=== PATIENT | male | born 1990 | race Caucasian/White ===

== ENCOUNTER 2017-09-29 15:56 | Emergency (ER) | payer OTHER ==
[~2017-09-29] VITALS: Ht 182.9 cm; Wt 102.5 kg
[2017-09-29 16:04] VITALS: Ht 182.9 cm; Wt 102.5 kg
[2017-09-29 17:33] VITALS: BP 126/82
== END 2017-09-29 17:33 | disposition home or self-care (01) ==
LOC: ED 15:56
DX: T78.40XA Allergy, unspecified, initial encounter (principal); X58.XXXA Exposure to other specified factors, initial encounter
CPT/HCPCS: J7512; Q0163

== ENCOUNTER 2017-09-30 19:45 | Emergency (ER) | payer OTHER ==
[~2017-09-30] VITALS: Ht 182.9 cm; Wt 100.7 kg
[2017-09-30 20:55] VITALS: BP 141/88
== END 2017-09-30 20:55 | disposition home or self-care (01) ==
LOC: ED 19:45
DX: R06.6 Hiccough (principal)